=== PATIENT | male | born 1990 | race Caucasian/White ===

== ENCOUNTER 2017-06-26 16:46 | Outpatient (CLI) | payer BC | END 2017-06-26 16:47 | disposition home or self-care (01) | LOC: BICRAD 16:46 | PROVIDERS: ATTEND Chiropractor | DX: M40.05 Postural kyphosis, thoracolumbar region (principal); M48.54XA Collapsed vertebra, not elsewhere classified, thoracic region, initial encounter for fracture | CPT/HCPCS: 72070; 72100 ==